=== PATIENT | male | born 1990 | race Native Hawaiian/Other Pacific Islander ===

== ENCOUNTER 2021-05-31 12:17 | Emergency (ER) | payer OTHER ==
[~2021-05-31] VITALS: Ht 188 cm; Wt 82.6 kg
[2021-05-31 13:35] LABS: PLATELET COUNT 255 K/uL (142-355)
[2021-05-31 13:46] LABS: POTASSIUM 4.2 mmol/L (3.6-5.2)
[2021-05-31 15:01] VITALS: BP 123/75; TEMP 98.7
== END 2021-05-31 15:01 | disposition home or self-care (01) ==
LOC: ED 12:17
PROVIDERS: Emergency Medicine Emergency Medical Services
DX: R59.0 Localized enlarged lymph nodes (principal)
CPT/HCPCS: 80053; 81000; 85027; 99282; 99283